=== PATIENT | male | born 1970 | race Caucasian/White ===

== ENCOUNTER 2017-03-26 12:23 | Emergency (ER) | payer SELFPAY ==
[~2017-03-26] VITALS: Ht 182.9 cm; Wt 91.0 kg
[2017-03-26 12:46] VITALS: BP 116/79
[2017-03-26] MEDS ORDERED: TETRACAINE 0.5% OPHTH DROPS 4ML RIGHTEYE ONE (14:30)
== END 2017-03-26 15:05 | disposition home or self-care (01) ==
LOC: ER 12:48
DX: H57.9 Unspecified disorder of eye and adnexa (principal)
CPT/HCPCS: 99282; J7040